=== PATIENT | female | born 1950 | race Caucasian/White ===

== ENCOUNTER 2023-04-25 14:52 | Outpatient (AMB) | payer MEDICARE, SELFPAY ==
--- NOTE | 2023-04-25 15:07 | MHC.PC.OV ---
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: No Allergies No Known Allergies Allergy (Verified 04/25/23 15:46) Medication List - Last Reconciled 04/25/23 by ZOE Bernal acetaminophen (Tylenol Extra Strength) 1,000 mg PO Q6H PRN aspirin 81 mg PO DAILY atorvastatin 10 mg PO DAILY cholecalciferol (vitamin D3) 25 mcg PO DAILY esomeprazole magnesium (Nexium) 40 mg PO DAILY fluticasone propionate 50 mcg/actuation (Flonase Allergy Relief) 1 spray intranasal DAILY lisinopril 20 mg PO DAILY magnesium gluconate (Mag-G) 54 mg PO DAILY mecobalamin (vitamin B12) 1,000 mcg PO DAILY melatonin 10 mg PO BEDTIME PRN meloxicam 15 mg PO DAILY swlsmqelgmds-merokglx-fygtjv 1 tab PO DAILY omega-3 fatty acids 1,250 mg PO DAILY sertraline 50 mg PO DAILY Tobacco use date assessed: 04/25/23 Fall risk assessment: 2 + Falls in past year Last assessed Fall Risk: 04/25/23 Dental Screening Dental Screen Date: 04/25/23 Did you have a dental visit in the last 12 months?: Yes Did you have a dental problem in the last 6 months where you did not have access to dental care?: No Was dental information given to patient?: Patient has dentist 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 Previous PCP in [place] Dr. Rose, last visit about 1 year ago. No medical records from previous PCP. 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 - followed by Orthopedic-reports injections 2 months ago with improvement in pain, left-sided sciatica for long time-reports taking Tylenol and ice packs with some improvement-interested in physical therapy - pain is worse with prolonged sitting, arthritis of low back-reports x-ray long time ago-will repeat x-ray due to back pain as well, hypertension, varicose vein of right leg-reports will be having procedure on right lower extremity veins 05/2023 in [place], GERD which is stable with Nexium-reports intermittent coughing when swallowing foods, reports bilateral ear blocked sensation for long time-reports eustachian tube problems, reports ongoing postnasal drip-did not use anything for this except normal saline spray with no improvement, chronic numbness in feet-and cramping in legs usually when at rest, and female bladder prolapse-reports plan was for surgery-this was on hold due to being sick with cancer. Also would like her skin on back to be checked by PCP, reports she lives by herself unable to check her back. No shortness of breath or chest pain. Patient reports that she does not have high cholesterol, she reports she was placed on atorvastatin for prevention. Patient is a and she lives by herself, retired. Reports 1 cocktail at night, reports she does not need help with alcohol cessation. [facility] Surgical History H/O neck surgery History of cholecystectomy Hx of tonsillectomy Family History (Updated 04/25/23 @ 16:05 by ZOE Bernal) Mother No problems noted. Father Alzheimer disease Hx of CABG Social History Housing: Apartment Patient Tobacco Use Status: Never used Tobacco Current occupational status: retired Cognitive needs: No Hearing needs: No Vision needs: No Questionnaire PHQ-9 Over the last 2 weeks, how often have you been bothered by any of the following problems? 1. Little interest or pleasure in doing things: not at all 2. Feeling down, depressed, or hopeless: not at all 3. Trouble falling or staying asleep, or sleeping too much: not at all 4. Feeling tired or having little energy: not at all 5. Poor appetite or overeating: not at all 6. Feeling bad about yourself - or that you are a failure or have let yourself or your family down: not at all 7. Trouble concentrating on things, such as reading the newspaper or watching television: not at all 8. Moving or speaking so slowly that other people could have noticed. Or the opposite - being so fidgety or restless that you have been moving around a lot more than usual: not at all 9. Thoughts that you would be better off or of hurting yourself in some way: not at all Total score: 0 Depression Screening Interpretation: Negative 39865 - PHQ-9 Billing: Yes Source: Developed by Drs. Shaheen Vasquez, Hollie Schroeder, Cristofer Logan and colleagues, with an educational mary from [employer]. Thrive Questionnaire Date Thrive assessed: 04/25/23 I am a: Patient What is your living situation today?: I have a steady place to live Within the past 12 months, did the food you bought not last and you didn't have the money to get more?: Never true Within the past 12 months, did you worry whether your food would run out before you got money to buy more?: Never true Do you have trouble paying for medicines?: No Do you have trouble getting transportation to medical appointments?: No Do you have trouble paying your heating and electricity bill?: No Do you have trouble taking care of your child, family member or friend?: No Do you have trouble with day-to-day activities such as bathing, preparing meals, shopping, managing finances, etc.?: No Are you currently unemployed and looking for a job?: No Are you interested in more education?: No Currently or been in a relationship where the following occur: no concerns reported AUDIT C Alcohol Use Questionnaire (AUDIT-C) 1. How often do you have a drink containing alcohol?: 4 or more times a week 2. How many drinks containing alcohol do you have on a typical day when you are drinking?: 1 or 2 3. How often do you have six or more drinks on one occasion?: Weekly Total Score: 7 Score Reviewed/Action Taken: Yes ZIYAD-7 AMB Questionnaire ZIYAD-7 Date ZIYAD - 7 assessed: 04/25/23 Feeling nervous, anxious, or on edge: 0 = Not at all Not being able to stop or control worryin = Not at all Worrying too much about different things: 0 = Not at all Trouble relaxin = Not at all Being so restless that it is hard to sit still: 0 = Not at all Becoming easily annoyed or irritable: 0 = Not at all Feeling afraid as if something awful might happen: 0 = Not at all Total ZIYAD-7 score (0-4 normal; 5-9 mild; 10-14 moderate; 15-21 severe): 0 Source: Developed by Drs. Shaheen Vasquez, Hollie Schroeder, Cristofer Logan and colleagues, with an educational mary from [employer]. ZIYAD-7 Assessment Billing ZIYAD-7 Assessment Tool: ZIYAD-7 Assessment 17524 Review of Systems Const Denies body aches, Denies chills, Denies fever(s) and Denies headache(s) Eyes Denies change in vision ENT Reports as per HPI, Denies dizziness, Denies otalgia, Denies headache(s), Denies nasal discharge, Reports post nasal drip, Denies sinus pain, Denies sinus pressure and Denies sore throat Card Denies chest pain, Denies edema, Denies lightheadedness and Denies dyspnea Resp Denies cough, Denies dyspnea and Denies wheezing GI Denies abdominal pain, Denies constipation, Denies diarrhea, Denies nausea and Denies vomiting Denies dysuria Musc Reports back pain, Denies myalgias, Reports arthralgias, Denies joint swelling, Reports numbness (feet) and Reports tingling (feet ) Skin/Breast Denies lesions and Denies rash Neuro Denies dizziness, Denies headache(s), Reports numbness (feet) and Reports tingling (feet ) Aller/Immun Denies wheezing Physical exam (Primary Care) Vital Signs: Last Vital Signs Pulse 67 04/25/23 15:20 BP 118/86 04/25/23 15:20 Pulse Ox 96 04/25/23 15:20 Oxygen Delivery Method Room Air 04/25/23 15:20 BMI result Body Mass Index 27.6 Tobacco/Smoking Status: Tobacco use Status Tobacco use date assessed 04/25/23 04/25/23 15:09 Patient Tobacco Use Status Never used Tobacco 04/25/23 15:09 PHQ-9: PHQ-9 Score PHQ-9: Total score 0 04/25/23 15:59 Depression Screening Interpretation: Negative Thrive Assessment: Date of Thrive Assessment Date Thrive assessed 04/25/23 04/25/23 15:10 Currently or been in a relationship where the following occur: no concerns reported Const General: cooperative and no acute distress Orientation/consciousness: patient oriented x3 HENMT Head: Yes normocephalic and Yes atraumatic Ears: TM's normal bilaterally Face and sinus: Yes sinuses nontender Mouth: oropharynx normal and moist mucous membranes Throat: Yes posterior oropharynx normal Eyes General: appearance normal, both eyes and all related structures Pupils: Equal, round and reactive pupils present EOM: EOMs intact bilaterally Neck Neck: Yes normal visual inspection, Yes full ROM and Yes no lymphadenopathy Thyroid: Thyroid normal Resp Effort & Inspection: normal respiratory effort and able to speak in complete sentences Auscultation: clear to auscultation bilaterally, no crackles, no rales, no rhonchi and no wheezes Cardio Rate: regular rate Rhythm: regular rhythm Heart sounds: S1 normal heart sound present, S2 normal heart sound present and no murmurs GI Palpation (GI): Soft to palpation, not firm, nontender, no guarding, not rigid and no hepatosplenomegaly Auscultation: normal bowel sounds General: No CVA tenderness Back/Spine/Pelvis Back: No CVA tenderness Thoracic/Lumbar Spine: thoraco-lumbar ROM normal, No paraspinal muscle tenderness, No thoracic spinal tenderness, No lumbar spinal tenderness and straight leg raise positive (Left) Skin Other: Mid back with intact skin tag, nontender Generalized back with multiple small flat brown areas, nontender, no discharge, no suspicious lesions Neuro General: patient oriented x3 Cranial nerves: Yes Equal, round and reactive pupils present Gait exam (Neuro): Normal gait present Extrem General: Yes full ROM and No edema Assessment and Plan Assessment & Plan (1) Female bladder prolapse: Code(s): N81.10 - Cystocele, unspecified Plan: Urogynecology referral for an evaluation and treatment Patient reports plan was for surgery, although this was on hold due to her being sick with cancer (2) Numbness in feet: Code(s): R20.0 - Anesthesia of skin Plan: Blood work ordered If blood work within normal range, will consider nerve study (3) Postnasal drip: Code(s): R09.82 - Postnasal drip Plan: ENT referral for an evaluation and treatment Will treat with Flonase nasal spray daily (4) Eustachian tube dysfunction: Code(s): H69.90 - Unspecified Eustachian tube disorder, unspecified ear Plan: ENT referral for an evaluation and treatment Will treat with Flonase nasal spray daily (5) GERD (gastroesophageal reflux disease): Code(s): K21.9 - Gastro-esophageal reflux disease without esophagitis Plan: Continue Nexium 40 mg daily Avoid GERD trigger foods Do not lay down 2-3 hours after evening meal Patient reports coughing fits when swallowing foods Will obtain upper GI study (6) Hypertension: Code(s): I10 - Essential (primary) hypertension Plan: Goal BP equal or less than 140/90 Continue lisinopril 20 mg daily Low-sodium diet (7) Arthritis of low back: Code(s): M47.819 - Spondylosis without myelopathy or radiculopathy, site unspecified Plan: Physical therapy referral Patient reports that she takes Tylenol 1000 mg 1 to 2 times a day p.r.n. Will repeat x-ray Patient would like to hold off on muscle relaxer at this time (8) Left sided sciatica: Code(s): M54.32 - Sciatica, left side Plan: Same as above Patient also has meloxicam 15 mg tablet which is given by her orthopedic for shoulder pains, she takes half tablet-reports this makes her dizzy intermittently-she will try [id number] naproxen p.r.n. instead (9) Anxiety: Code(s): F41.9 - Anxiety disorder, unspecified Plan: Stable with sertraline 50 mg daily (10) Encounter to establish care: Comment: PNA IZ after age 65 per pt. Td UTD per pt. Code(s): Z76.89 - Persons encountering health services in other specified circumstances Plan: Patient presents to establish care, blood work ordered (11) Insomnia: Code(s): G47.00 - Insomnia, unspecified Plan: Continue melatonin 10 mg at bedtime p.r.n. Plan Follow-up in 2 months for PE and labs Orders: Orders Vitamin D 25-OH Total Today I10 - Essential (primary) hypertension Vitamin B12 and Folate Today I10 - Essential (primary) hypertension TSH reflex Free T4 Today I10 - Essential (primary) hypertension Lipid Panel Today I10 - Essential (primary) hypertension Comprehensive [place]. Panel Fast Today I10 - Essential (primary) hypertension Complete Blood Count Auto Diff Today I10 - Essential (primary) hypertension Magnesium Today R20.0 - Anesthesia of skin XR lumbar spine 4V min Today M47.819 - Spondylosis without myelopathy or radiculopathy, site unspecified FL upper GI w Ba Swallow Today K21.9 - Gastro-esophageal reflux disease without esophagitis PT Evaluation and Treatment Today M47.819 - Spondylosis without myelopathy or radiculopathy, site unspecified, M54.32 - Sciatica, left side Referrals Urogynecology Referral N81.10 - Cystocele, unspecified Ear/Nose/Throat Referral H69.90 - Unspecified Eustachian tube disorder, unspecified ear, R09.82 - Postnasal drip Medications: New fluticasone propionate 50 mcg/actuation (Flonase Allergy Relief) administer into each nostril 1 spray intranasal DAILY 100 mL 0RF R09.82 - Postnasal drip Coding Level of Care Code New Pt Level 4 (55613) Diagnoses Female bladder prolapse N81.10 Numbness in feet R20.0 Postnasal drip R09.82 Eustachian tube dysfunction H69.90 GERD (gastroesophageal reflux disease) K21.9 Hypertension I10 Arthritis of low back M47.819 Left sided sciatica M54.32 Anxiety F41.9 Encounter to establish care Z76.89 Insomnia G47.00 Additional Codes ZIYAD-7 Assessment Billing - ZIYAD-7 Assessment Tool: ZIYAD-7 Assessment 08312 ([id number])
[2023-04-25 15:20] VITALS: BP 118/86; PULSE 67; O2SAT 96; BMI 27.6
== END 2023-04-25 16:23 | disposition home or self-care (01) ==
PROVIDERS: PCP Nurse Practitioner Family; Visit Provider Nurse Practitioner Family
DX: K21.9 Gastro-esophageal reflux disease without esophagitis (principal); I10 Essential (primary) hypertension; F41.9 Anxiety disorder, unspecified; N81.10 Cystocele, unspecified; R20.0 Anesthesia of skin; R09.82 Postnasal drip; H69.90 Unspecified Eustachian tube disorder, unspecified ear; M47.819 Spondylosis without myelopathy or radiculopathy, site unspecified; M54.32 Sciatica, left side; Z76.89 Persons encountering health services in other specified circumstances; G47.00 Insomnia, unspecified
CPT/HCPCS: 99204

== ENCOUNTER 2023-04-26 10:07 | Outpatient (REF) | payer MEDICARE, OTHER, SELFPAY ==
--- NOTE | ~2023-04-26 | XR_ITS ---
EXAMINATION: XR LUMBOSACRAL SPINE CLINICAL INFORMATION: Reason for Exam M47.819 - Spondylosis without myelopathy or radiculopathy, site unspecified COMPARISON: None TECHNIQUE: 5 views of the lumbar spine FINDINGS: 5 nonrib-bearing lumbar-type vertebral bodies. Vertebral body heights are maintained. Grade 1 anterolisthesis of L5 on S1. Mild levoconvex curvature of the lumbar spine. No pars defects. Sacroiliac joint spaces appear maintained. Moderate multilevel degenerative disc disease with loss of disc space height and facet arthropathy. Right upper quadrant cholecystectomy clips. XR/XR lumbar spine 4V min IMPRESSION: * Moderate spondylosis of the lumbar spine, as above detailed. * Spondylolisthesis, as above detailed with levoconvex curvature of the lumbar spine.
[2023-04-26 10:34] LABS: MANUAL DIFF FLAG NO
[2023-04-26 10:54] LABS: Basophils Percent Auto 0.4 % (0-2); Eosinophils Absolute Auto 0.2 X10*3/uL (0.0-0.4); Eosinophils Percent Auto 4.1 % (0-4); Hematocrit 39.1 % (37.0-47.0); Hemoglobin 12.9 g/dl (12.0-16.0); Imm Gran Abs Auto 0.02 X10*3/uL (0.00-0.03); Imm Gran Pct Auto 0.4 % (0.0-0.4); Lymphocytes Absolute Auto 1.5 X10*3/uL (1.2-4.9); Lymphocytes Percent Auto 30.5 % (20-40); Mean Platelet Volume 11.1 fL (9.4-12.3); Monocytes Absolute Auto 0.4 X10*3/uL (0.1-1.2); Monocytes Percent Auto 8.2 % (2-11); Neutrophils Absolute Auto 2.8 x10*3/uL (2.0-8.3); Neutrophils Percent Auto 56.4 % (45-73); Platelet Count 158 X10*3/uL (160-400); Red Blood Count 3.91 X10*6/uL (4.20-5.50); Red Cell Distribution Width 14.1 % (11.0-16.0); White Blood Count 4.9 X10*3/uL (4.8-10.8)
[2023-04-26 11:41] LABS: Alanine Aminotransferase 30 U/L (0-31); Albumin Level 4.1 g/dL (3.5-5.0); Alkaline Phosphatase 62 U/L (39-117); Anion Gap 10 (12-20); Aspartate Amino Transferase 23 U/L (5-31); Bilirubin Total 0.7 mg/dL (0.0-1.0); Blood Urea Nitrogen 24 mg/dL (9-16); Calcium 10.1 mg/dL (8.4-10.2); Carbon Dioxide 27 mmol/L (22-29); Chloride 107 mmol/L (96-108); Cholesterol 194 mg/dL; Estimated Glomerular Filt Rate > 60; Glucose Fasting 107 mg/dL (60-99); HDL Cholesterol 63 mg/dL; LDL Cholesterol Calculated 112 mg/dl; Magnesium 1.8 mg/dL (1.6-2.6); Potassium 4.4 mmol/L (3.3-5.1); Sodium 140 mmol/L (135-145); Total Protein 7.2 g/dL (6.5-8.0); Triglycerides 99 mg/dL
[2023-04-26 11:57] LABS: TSH reflex Free T4 1.09 uIU/mL (0.32-4.0); Vitamin D 25-OH Total 51.8 ng/mL (>30)
[2023-04-26 12:08] LABS: Folate 13.5 ng/mL (> or = 4.0); Vitamin B12 1061 pg/mL (200-900)
== END 2023-04-26 10:08 | disposition home or self-care (01) ==
LOC: HO.LAB 10:07
PROVIDERS: PCP Nurse Practitioner Family; Visit Provider Nurse Practitioner Family
DX: I10 Essential (primary) hypertension (principal); R20.0 Anesthesia of skin; M47.816 Spondylosis without myelopathy or radiculopathy, lumbar region; G47.00 Insomnia, unspecified
CPT/HCPCS: 36415; 72110; 80053; 80061; 82306; 82607; 82746; 83735; 84443; 85025

== ENCOUNTER 2023-05-15 10:06 | Outpatient (REF) | payer MEDICARE, OTHER, SELFPAY ==
[2023-05-15 10:53] LABS: Estimated Average Glucose 97 mg/dL
== END 2023-05-15 10:07 | disposition home or self-care (01) ==
LOC: HO.LAB 10:06
PROVIDERS: PCP Nurse Practitioner Family; Visit Provider Nurse Practitioner Family
DX: R73.01 Impaired fasting glucose (principal)
CPT/HCPCS: 36415; 83036

== ENCOUNTER 2023-06-27 10:16 | Outpatient (AMB) | payer MEDICARE, OTHER, SELFPAY ==
[2023-06-27 10:17] VITALS: BP 136/82; PULSE 55; O2SAT 99; BMI 27.7
--- NOTE | 2023-06-27 10:17 | MHC.PC.OV ---
Vital Signs 06/27/23 10:17 Height 5 ft 7 in Weight 177 lb 0.4 oz BMI 27.7 BP 136/82 Blood Pressure Location Lt brachial Position Sitting Pulse 55 Pulse Source Pulse Oximeter Temp Source Skin Pulse Oximetry (%) 99 Oxygen Delivery Method Room Air Intake Visit Reasons: Annual Exam Intake Note: Patient is here today for a physical. 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 Allergies No Known Allergies Allergy (Verified 06/27/23 10:26) Medication List - Last Reconciled 06/27/23 by ZOE Bernal acetaminophen (Tylenol Extra Strength) 1,000 mg PO Q6H PRN aspirin 81 mg PO DAILY atorvastatin 10 mg PO DAILY cholecalciferol (vitamin D3) 25 mcg PO DAILY esomeprazole magnesium (Nexium) 40 mg PO DAILY fluticasone propionate 50 mcg/actuation (Flonase Allergy Relief) 1 spray intranasal DAILY lisinopril 20 mg PO DAILY magnesium gluconate (Mag-G) 54 mg PO DAILY mecobalamin (vitamin B12) 1,000 mcg PO DAILY melatonin 10 mg PO BEDTIME PRN meloxicam 15 mg PO DAILY xincigldusdr-qptdemcp-htptuu 1 tab PO DAILY omega-3 fatty acids 1,250 mg PO DAILY sertraline 50 mg PO DAILY Tobacco use date assessed: 06/27/23 Fall risk assessment: No Falls in past year Last assessed Fall Risk: 06/27/23 Dental Screening Dental Screen Date: 06/27/23 Did you have a dental visit in the last 12 months?: Yes Did you have a dental problem in the last 6 months where you did not have access to dental care?: No Was dental information given to patient?: Patient has dentist HPI Annual Exam HPI Details Patient is a 72-year-old female who presents today for physical exam. 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 No shortness of breath or chest pain. Today we discussed patient's need for mammogram and bone density screening. Patient reports tetanus vaccine within 10 years. Pneumonia vaccine after age 65 per patient. Eye and dental exams up-to-date. Patient reports normal colonoscopy in 2020. Reports drinking alcohol only socially, does not need help with alcohol cessation. [facility] Medical History (Updated 06/27/23 @ 11:05 by ZOE Bernal) Encounter to establish care Surgical History (Updated 06/27/23 @ 11:02 by ZOE Bernal) History of colonoscopy Hx of tonsillectomy History of cholecystectomy H/O neck surgery Family History Mother No problems noted. Father Alzheimer disease Hx of CABG Social History Housing: Apartment Patient Tobacco Use Status: Never used Tobacco Current occupational status: retired Cognitive needs: No Hearing needs: No Vision needs: No Questionnaire PHQ-9 Over the last 2 weeks, how often have you been bothered by any of the following problems? 1. Little interest or pleasure in doing things: not at all 2. Feeling down, depressed, or hopeless: not at all 3. Trouble falling or staying asleep, or sleeping too much: not at all 4. Feeling tired or having little energy: not at all 5. Poor appetite or overeating: not at all 6. Feeling bad about yourself - or that you are a failure or have let yourself or your family down: not at all 7. Trouble concentrating on things, such as reading the newspaper or watching television: not at all 8. Moving or speaking so slowly that other people could have noticed. Or the opposite - being so fidgety or restless that you have been moving around a lot more than usual: not at all 9. Thoughts that you would be better off or of hurting yourself in some way: not at all Total score: 0 Depression Screening Interpretation: Negative Depression Screening Done: Yes 28472 - PHQ-9 Billing: Yes Source: Developed by Drs. Shaheen Vasquez, Hollie Schroeder, Cristofer Logan and colleagues, with an educational mary from [employer]. Thrive Questionnaire Date Thrive assessed: 04/25/23 AUDIT C Alcohol Use Questionnaire (AUDIT-C) 1. How often do you have a drink containing alcohol?: 4 or more times a week 2. How many drinks containing alcohol do you have on a typical day when you are drinking?: 1 or 2 3. How often do you have six or more drinks on one occasion?: Weekly Total Score: 7 Score Reviewed/Action Taken: Yes ZIYAD-7 AMB Questionnaire ZIYAD-7 Date ZIYAD - 7 assessed: 04/25/23 Feeling nervous, anxious, or on edge: 0 = Not at all Not being able to stop or control worryin = Not at all Worrying too much about different things: 0 = Not at all Trouble relaxin = Not at all Being so restless that it is hard to sit still: 0 = Not at all Becoming easily annoyed or irritable: 0 = Not at all Feeling afraid as if something awful might happen: 0 = Not at all Total ZIYAD-7 score (0-4 normal; 5-9 mild; 10-14 moderate; 15-21 severe): 0 Source: Developed by Drs. Shaheen Vasquez, Hollie Schroeder, Cristofer Logan and colleagues, with an educational mary from [employer]. ZIYAD-7 Assessment Billing ZIYAD-7 Assessment Tool: ZIYAD-7 Assessment 80465 Review of Systems Const Denies body aches, Denies chills, Denies fever(s) and Denies headache(s) Eyes Denies change in vision ENT Denies dizziness, Denies otalgia, Denies headache(s), Denies nasal discharge, Reports post nasal drip, Denies sinus pain, Denies sinus pressure and Denies sore throat Card Denies chest pain, Denies edema, Denies lightheadedness and Denies dyspnea Resp Denies cough, Denies dyspnea and Denies wheezing GI Denies abdominal pain, Denies constipation, Denies diarrhea, Denies nausea and Denies vomiting Denies dysuria Musc Reports back pain, Denies myalgias, Reports arthralgias, Denies joint swelling, Reports numbness (feet) and Reports tingling (feet ) Skin/Breast Denies lesions and Denies rash Neuro Denies dizziness, Denies headache(s), Reports numbness (feet) and Reports tingling (feet ) Aller/Immun Denies wheezing Physical exam (Primary Care) Vital Signs: Last Vital Signs Pulse 55 06/27/23 10:17 BP 136/82 06/27/23 10:17 Pulse Ox 99 06/27/23 10:17 Oxygen Delivery Method Room Air 06/27/23 10:17 BMI result Body Mass Index 27.7 Tobacco/Smoking Status: Tobacco use Status Tobacco use date assessed 06/27/23 06/27/23 10:24 Patient Tobacco Use Status Never used Tobacco 06/27/23 10:24 PHQ-9: PHQ-9 Score PHQ-9: Total score 0 06/27/23 10:24 Depression Screening Interpretation: Negative Thrive Assessment: Date of Thrive Assessment Date Thrive assessed 04/25/23 06/27/23 10:24 Const General: cooperative and no acute distress Orientation/consciousness: patient oriented x3 HENMT Head: Yes normocephalic and Yes atraumatic Ears: TM's normal bilaterally Face and sinus: Yes sinuses nontender Mouth: oropharynx normal and moist mucous membranes Throat: Yes posterior oropharynx normal Eyes General: appearance normal, both eyes and all related structures Pupils: Equal, round and reactive pupils present EOM: EOMs intact bilaterally Neck Neck: Yes normal visual inspection, Yes full ROM and Yes no lymphadenopathy Thyroid: Thyroid normal Resp Effort & Inspection: normal respiratory effort and able to speak in complete sentences Auscultation: clear to auscultation bilaterally, no crackles, no rales, no rhonchi and no wheezes Cardio Rate: regular rate Rhythm: regular rhythm Heart sounds: S1 normal heart sound present, S2 normal heart sound present and no murmurs GI Palpation (GI): Soft to palpation, not firm, Tenderness to palpation present (GI) in the RUQ; with no rebound tenderness, no guarding, not rigid and no hepatosplenomegaly Auscultation: normal bowel sounds General: No CVA tenderness Back/Spine/Pelvis Back: No CVA tenderness Thoracic/Lumbar Spine: thoraco-lumbar ROM normal, No paraspinal muscle tenderness, No thoracic spinal tenderness and No lumbar spinal tenderness Skin Rashes: no rashes Neuro General: patient oriented x3 Cranial nerves: Yes Equal, round and reactive pupils present Gait exam (Neuro): Normal gait present Extrem General: Yes full ROM and No edema Assessment and Plan Assessment & Plan (1) Postnasal drip: Code(s): R09.82 - Postnasal drip Plan: Will follow-up on ENT referral Continue Flonase nasal spray daily (2) GERD (gastroesophageal reflux disease): Code(s): K21.9 - Gastro-esophageal reflux disease without esophagitis Plan: Continue Nexium 40 mg daily Avoid GERD trigger foods Do not lay down 2-3 hours after evening meal Patient reports coughing fits when swallowing foods Will follow-up on upper GI study (3) Hypertension: Code(s): I10 - Essential (primary) hypertension Plan: Goal BP equal or less than 140/90 Continue lisinopril 20 mg daily Low-sodium diet (4) Arthritis of low back: Code(s): M47.819 - Spondylosis without myelopathy or radiculopathy, site unspecified Plan: Physical therapy referral - patient will call for an appointment - has referral Continue [id number] Tylenol p.r.n. and Aleve prn Patient interested in pain management referral (5) Left sided sciatica: Code(s): M54.32 - Sciatica, left side Plan: Physical therapy referral - patient will call for an appointment Continue [id number] Tylenol p.r.n. and Aleve prn Patient interested in pain management referral (6) Anxiety: Code(s): F41.9 - Anxiety disorder, unspecified Plan: Stable with sertraline 50 mg daily (7) Insomnia: Code(s): G47.00 - Insomnia, unspecified Plan: Continue melatonin 10 mg at bedtime p.r.n. (8) RUQ abdominal tenderness: Code(s): R10.811 - Right upper quadrant abdominal tenderness Plan: Physical exam with right upper quadrant tenderness, will obtain right upper quadrant ultrasound, history of cholecystectomy in the past (9) Post-menopausal: Code(s): Z78.0 - Asymptomatic menopausal state (10) Adult general medical exam: Comment: PNA IZ after age 65 per pt. Tetanus IZ within 10 years per pt. Code(s): Z00.00 - Encounter for general adult medical examination without abnormal findings (11) Screening for breast cancer: Code(s): Z12.39 - Encounter for other screening for malignant neoplasm of breast (12) Hyperlipidemia: Code(s): E78.5 - Hyperlipidemia, unspecified Plan: Continue atorvastatin 10 mg daily Low-cholesterol diet (13) Overweight (BMI 25.0-29.9): Code(s): E66.3 - Overweight Plan: Healthy food choices and exercise as tolerated Orders: Orders US abdomen limited Today R10.811 - Right upper quadrant abdominal tenderness Lipid Panel 4 Months I10 - Essential (primary) hypertension Comprehensive [place]. Panel Fast 4 Months I10 - Essential (primary) hypertension XR DEXA axial skeleton Today Z78.0 - Asymptomatic menopausal state MM tomosynthesis screening BI Today Z12.31 - Encounter for screening mammogram for malignant neoplasm of breast Complete Blood Count no Diff 4 Months I10 - Essential (primary) hypertension Referrals Pain Management Referral M47.819 - Spondylosis without myelopathy or radiculopathy, site unspecified, M54.32 - Sciatica, left side Coding Level of Care Code Est Pt Prev Care >65y(53192) Diagnoses Postnasal drip R09.82 GERD (gastroesophageal reflux disease) K21.9 Hypertension I10 Arthritis of low back M47.819 Left sided sciatica M54.32 Anxiety F41.9 Insomnia G47.00 RUQ abdominal tenderness R10.811 Post-menopausal Z78.0 Adult general medical exam Z00.00 Screening for breast cancer Z12.39 Hyperlipidemia E78.5 Overweight (BMI 25.0-29.9) E66.3 Additional Codes ZIYAD-7 Assessment Billing - ZIYAD-7 Assessment Tool: ZIYAD-7 Assessment [id number] ([id number])
== END 2023-06-27 10:52 | disposition home or self-care (01) ==
PROVIDERS: PCP Nurse Practitioner Family; Visit Provider Nurse Practitioner Family
DX: Z00.00 Encounter for general adult medical examination without abnormal findings (principal); R09.82 Postnasal drip; K21.9 Gastro-esophageal reflux disease without esophagitis; I10 Essential (primary) hypertension; M47.819 Spondylosis without myelopathy or radiculopathy, site unspecified; M54.32 Sciatica, left side; F41.9 Anxiety disorder, unspecified; G47.00 Insomnia, unspecified; R10.811 Right upper quadrant abdominal tenderness; Z78.0 Asymptomatic menopausal state; E78.5 Hyperlipidemia, unspecified
CPT/HCPCS: 99397

== ENCOUNTER 2023-07-05 09:51 | Outpatient (REF) | payer MEDICARE, OTHER, SELFPAY ==
--- NOTE | ~2023-07-05 | FL_ITS ---
EXAMINATION: XR FLUOROSCOPY UPPER GI WITH AIR CLINICAL INFORMATION: Dysphagia. History of cervical fusion 20 years ago. COMPARISON: None TECHNIQUE: Fluoroscopic air contrast upper GI examination was performed utilizing standard techniques with thin and thick barium and effervescent granules. Numerous spot images were obtained. FINDINGS: Patient is status post anterior cervical fusion of C4-C7. Plate and screw fixation is present C5-C7. No hardware complication. There are associated disc grafts with good disc bony fusion from C4-C7. Lateral cine images of the oropharynx and hypopharynx demonstrate normal swallow mechanism with normal epiglottic inversion and soft palate elevation. No tracheal penetration, glottic or subglottic aspiration identified. No nasopharyngeal reflux present. Hypopharyngeal structures appear normal without evidence of mass or diverticulum. There was no significant cricopharyngeal achalasia. No indentation on the esophageal inlet from the plate and screw construct. Dual and single contrast images of the esophagus demonstrate a patulous esophagus with normal contour, and mucosal pattern. No evidence of stricture, mass, or ulcerations identified. Primary peristaltic wave was weak, followed by numerous disordered tertiary nonpropulsive contractions are present with to and fro movement of the barium consistent with esophageal dysmotility. This barium eventually passed into the stomach. A small to moderate sized type III hiatal hernia is present. Mild gastroesophageal reflux seen in the distal esophagus, to the level of the nahomi. Dual contrast and single contrast images of the stomach demonstrated normal contour. Mild thickening of the gastric rugae noted, although the patient could not adequately retain the effervescent granule gas, and this is felt to most likely be artifactual. A mild gastritis is also possible. No discrete mass, or ulceration. Contrast freely passed into the gastric antrum and duodenal bulb without delay. Single and air-contrast images of the duodenal bulb demonstrate no abnormality. The duodenal sweep has a normal appearance, course, and mucosal fold appearance. The imaged proximal jejunum has a normal fold pattern and caliber. Cholecystectomy clips are noted. FLUOROSCOPY TIME: 3 minutes 57 seconds Number of Spot Images: 11 spot images taken fluoroscopically; 7 fluoroscopic image hold runs were obtained. DOSE AREA PRODUCT: 3779 uGy-m2 (microgray-meter squared) FL/FL upper GI w air w Ba Swallow IMPRESSION: 1) Small to moderate-sized type III hiatus hernia (paraesophageal). 2) Moderate gastroesophageal reflux. 3) Patulous esophagus, with diffuse dysmotility, and poor overall propulsive peristalsis. 4. Prominent gastric rugae, probably artifactual due to patient inability to retain gas. A mild gastritis is not excluded. The stomach, duodenal bulb, sweep, and proximal jejunum are otherwise normal. 5. Surgical fusion C4-C7 without complication or indentation upon the esophageal inlet. This procedure was performed by Jong Jose PA-C, and supervised by Dr. Dillon
== END 2023-07-05 09:52 | disposition home or self-care (01) ==
LOC: HO.XRAY 09:51
PROVIDERS: PCP Nurse Practitioner Family; Visit Provider Nurse Practitioner Family
DX: K21.9 Gastro-esophageal reflux disease without esophagitis (principal)
CPT/HCPCS: 74246

== ENCOUNTER → 2023-07-05 09:51 | Outpatient (BNV) | payer MEDICARE, OTHER, SELFPAY | PROVIDERS: PCP Nurse Practitioner Family; Visit Provider Radiology Diagnostic Radiology | DX: K44.9 Diaphragmatic hernia without obstruction or gangrene (principal); K21.9 Gastro-esophageal reflux disease without esophagitis; M43.22 Fusion of spine, cervical region | CPT/HCPCS: 74246 ==

== ENCOUNTER 2023-08-01 07:39 | Outpatient (REF) | payer MEDICARE, OTHER, SELFPAY ==
--- NOTE | ~2023-08-01 | US_ITS ---
EXAMINATION: US ABDOMEN LIMITED CLINICAL INFORMATION: Right upper quadrant abdominal tenderness. COMPARISON: None available. TECHNIQUE: Real-time imaging of the right upper quadrant abdominal viscera. FINDINGS: PANCREAS: Partially visualized pancreas is unremarkable but tail is obscured by bowel gas. LIVER: The liver is normal in size. The liver contour is normal. There is increased echogenicity of liver due to hepatic steatosis No focal hepatic lesion. There is no intrahepatic biliary duct dilatation seen. GALLBLADDER: Surgically absent. COMMON BILE DUCT: Normal in caliber measuring 0.3 cm in diameter. RIGHT KIDNEY: Normal. No hydronephrosis. No renal calculi or focal parenchymal lesions. The kidney measures 11.9 cm in maximum dimension. FREE FLUID: None. US/US abdomen limited IMPRESSION: Status post cholecystectomy. Hepatic steatosis.
--- NOTE | ~2023-08-01 | MM_ITS ---
EXAMINATION: MM SCREENING DIGITAL BREAST TOMOSYNTHESIS, BILATERAL CLINICAL INFORMATION: Screening. Asymptomatic. COMPARISON: Mammography: This study is compared with prior exams dating back to 2015. TECHNIQUE: Digital breast tomosynthesis is performed in both the craniocaudal and mediolateral oblique views along with computer-aided detection (CAD). Synthesized 2D images are generated from the tomosynthesis. FINDINGS: There are scattered areas of fibroglandular density (ACR BI-RADS breast composition Category b). There are no significant masses, abnormal calcifications, or other abnormalities. MM/MM tomosynthesis screening BI IMPRESSION: No mammographic evidence of malignancy. ASSESSMENT: BI-RADS BI-RADS 1 - Negative RECOMMENDATION: Routine annual mammography screening. 1 year F/U This examination should not preclude the clinical evaluation of a suspicious palpable abnormality. This patient's information was entered into a reminder system with a target due date for their next mammogram.
--- NOTE | ~2023-08-01 | MM_ITS ---
EXAMINATION: BONE DENSITOMETRY CLINICAL INDICATION: Asymptomatic menopausal state. COMPARISON: This is the patient's baseline examination. TECHNIQUE: Using a [employer] DXA System (software version: 13.1) manufactured by [employer], dual-energy x-ray absorptiometry was performed of the lumbar spine and left hip. The images are of good technical quality. Summary results are attached. FINDINGS: AP SPINE L1-L4: BMD 1.340 g/cm2, Z-score 2.7, T-score 1.3, normal. LEFT FEMUR, NECK: BMD 0.991 g/cm2, Z-score 1.2, T-score -0.3, normal. LEFT FEMUR, TOTAL: BMD 0.956 g/cm2, Z-score 0.9, T-score -0.4, normal. IDENTIFIED RISK FACTORS: Menopause. Hysterectomy. Bilateral oophorectomy. HISTORY OF FRACTURE: None listed. MEDICATIONS: Calcium supplement and/or multivitamin. Vitamin D. MM/XR DEXA axial skeleton IMPRESSION: 1. DIAGNOSIS: Normal bone density based on the lowest T-score value of -0.4 in the total femur applying World Health Organization criteria. 2. 10-YEAR FRACTURE RISK PREDICTION, FRAX: According to the guidelines, FRAX calculation should only be performed on patients in the osteopenia bone density category.?Therefore, FRAX was not performed on this patient.? 3. Treatment Recommendations: NOF guidelines recommend consideration for treatment in postmenopausal women and men age 50 and older presenting with the following: -A hip or vertebral (clinical or morphometric) fracture. -T-score less than or equal to -2.5 at the femoral neck or spine after appropriate evaluation to exclude secondary causes. -Low bone mass at the hip or spine and a 10-year fracture probability by FRAX of greater than or equal to 3% for hip fracture or greater than or equal to 20% for major osteoporotic fracture based on the [place] adapted WHO algorithm. 4. Other Recommendations: All treatment decisions require clinical judgment and consideration of individual patient factors, including patient preferences, comorbidities, previous drug use, risk factors not captured in the FRAX model (e.g. frailty, falls, vitamin D deficiency, increased bone turnover, interval significant decline in bone density) and possible under or overestimation of fracture risk by FRAX. FUTURE SCAN RECOMMENDATION: People with diagnosed cases of osteoporosis or at high risk for fracture should have regular bone mineral density tests. For patients eligible for Medicare, routine testing is allowed once every 2 years. The testing frequency can be increased to one year for patients who have rapidly progressing disease, those who are receiving or discontinuing medical therapy to restore bone mass, or have additional risk factors.
== END 2023-08-01 07:40 | disposition home or self-care (01) ==
LOC: HO.US 07:39
PROVIDERS: PCP Nurse Practitioner Family; Visit Provider Nurse Practitioner Family
DX: Z12.31 Encounter for screening mammogram for malignant neoplasm of breast (principal); Z13.820 Encounter for screening for osteoporosis; Z78.0 Asymptomatic menopausal state; R10.811 Right upper quadrant abdominal tenderness
CPT/HCPCS: 76705; 77063; 77067; 77080

== ENCOUNTER → 2023-08-01 09:30 | Outpatient (BNV) | payer MEDICARE, OTHER, SELFPAY | PROVIDERS: PCP Nurse Practitioner Family; Visit Provider Radiology Diagnostic Radiology | DX: Z12.31 Encounter for screening mammogram for malignant neoplasm of breast (principal) | CPT/HCPCS: 77063; 77067 ==

== ENCOUNTER 2023-08-23 09:27 | Outpatient (AMB) | payer MEDICARE, OTHER, SELFPAY ==
--- NOTE | 2023-08-23 09:31 | MHC.OFFVIS ---
Intake Vital Signs 08/23/23 09:32 Height 5 ft 7 in Weight 177 lb 4.026 oz BMI 27.8 BP 139/80 Blood Pressure Location Lt brachial Position Sitting Pulse 52 Intake Visit Reasons: Gastroesophageal reflux disease (GERD) Intake Note: Patient presents to in office visit today as a new patient for GERD. CC: Patient c/o GERD for a few years and she states she has been on Nexium for quite a long time . She states she has occasional abdominal pain, and coughing, itching from throat, and sometimes chocking with solid foods. She had a barium swallow done a few weeks ago in the hospital that showed a hiatal hernia per PT. Accompanied by: Self / Same As Patient Allergies No Known Allergies Allergy (Verified 08/23/23 09:36) HPI Gastroesophageal reflux disease (GERD) HPI Details 73-year-old female here for initial evaluation of GERD. She is referred by Emmie Manjarrez of [facility] [place] primary care. PMX Hypertension Overweight High cholesterol Fibromyalgia syndrome Elevated fasting glucose Insomnia GERD Varicose veins Degenerative disc disease of the lumbar spine Shoulder arthritis Anxiety Cystocele * SURGICAL HISTORY Colonoscopy -[place] Tonsillectomy Cholecystectomy Neck surgery * ALLERGIES: NKDA * Robo[facility] LABS: Laboratory Tests 04/26/23 10:32 WBC 4.9 Hgb 12.9 Hct 39.1 MCV 100.0 H MCH 33.0 Plt Count 158 L Estimated GFR > 60 Total Bilirubin 0.7 AST 23 ALT 30 Alkaline Phosphata se 62 TSH 1.09 US OF ABD 08/02/23 FINDINGS: PANCREAS: Partially visualized pancreas is unremarkable but tail is obscured by bowel gas. LIVER: The liver is normal in size. The liver contour is normal. There is increased echogenicity of liver due to hepatic steatosis No focal hepatic lesion. There is no intrahepatic biliary duct dilatation seen. GALLBLADDER: Surgically absent. COMMON BILE DUCT: Normal in caliber measuring 0.3 cm in diameter. RIGHT KIDNEY: Normal. No hydronephrosis. No renal calculi or focal parenchymal lesions. The kidney measures 11.9 cm in maximum dimension. FREE FLUID: None. US/US abdomen limited IMPRESSION: Status post cholecystectomy. Hepatic steatosis. BARIUM SWALLOW 07/05/23 FINDINGS: Patient is status post anterior cervical fusion of C4-C7. Plate and screw fixation is present C5-C7. No hardware complication. There are associated disc grafts with good disc bony fusion from C4-C7. Lateral cine images of the oropharynx and hypopharynx demonstrate normal swallow mechanism with normal epiglottic inversion and soft palate elevation. No tracheal penetration, glottic or subglottic aspiration identified. No nasopharyngeal reflux present. Hypopharyngeal structures appear normal without evidence of mass or diverticulum. There was no significant cricopharyngeal achalasia. No indentation on the esophageal inlet from the plate and screw construct. Dual and single contrast images of the esophagus demonstrate a patulous esophagus with normal contour, and mucosal pattern. No evidence of stricture, mass, or ulcerations identified. Primary peristaltic wave was weak, followed by numerous disordered tertiary nonpropulsive contractions are present with to and fro movement of the barium consistent with esophageal dysmotility. This barium eventually passed into the stomach. A small to moderate sized type III hiatal hernia is present. Mild gastroesophageal reflux seen in the distal esophagus, to the level of the nahomi. Dual contrast and single contrast images of the stomach demonstrated normal contour. Mild thickening of the gastric rugae noted, although the patient could not adequately retain the effervescent granule gas, and this is felt to most likely be artifactual. A mild gastritis is also possible. No discrete mass, or ulceration. Contrast freely passed into the gastric antrum and duodenal bulb without delay. Single and air-contrast images of the duodenal bulb demonstrate no abnormality. The duodenal sweep has a normal appearance, course, and mucosal fold appearance. The imaged proximal jejunum has a normal fold pattern and caliber. Cholecystectomy clips are noted. FLUOROSCOPY TIME: 3 minutes 57 seconds Number of Spot Images: 11 spot images taken fluoroscopically; 7 fluoroscopic image hold runs were obtained. DOSE AREA PRODUCT: 3779 uGy-m2 (microgray-meter squared) FL/FL upper GI w air w Ba Swallow IMPRESSION: 1) Small to moderate-sized type III hiatus hernia (paraesophageal). 2) Moderate gastroesophageal reflux. 3) Patulous esophagus, with diffuse dysmotility, and poor overall propulsive peristalsis. 4. Prominent gastric rugae, probably artifactual due to patient inability to retain gas. A mild gastritis is not excluded. The stomach, duodenal bulb, sweep, and proximal jejunum are otherwise normal. 5. Surgical fusion C4-C7 without complication or indentation upon the esophageal inlet. TODAY'S VISIT She has had reflux for years. When she saw her PCP she was told she had a HH and she is having a lot of coughing and she has a lot of PNDS and has to clear her throat. She is also complaining of copious postnasal drip. She says that her current PPI which is Nexium controlled her GERD well. She was just very worried about the hiatal hernia. I explained to her that hiatal hernias are not readily repairable as it is a very big surgery and we usually only do it if medical management fails. It is possible that she is having nocturnal acid brash from laying down at night and I did breastfeeding peer counselor her to put blocks under the head of her bed to see if this improves her voice quality. She tells me she has had several upper endoscopies and to date they have all been normal. I do offer that we could do an upper endoscopy if she wants to check and see if her reflux is doing any damage but she prefers not to do this at this time. I also tell her that a referral to an pattern maker would be appropriate to rule out chronic sinusitis or other causes that could be affecting her vocal cords. She requests a referral to [address] [facility] [address] that is [address] she [place]. I tell her that she is welcome to return to my service at any time but this time there is really nothing that GI has to offer. Needs ENT referral for further investigation. [facility] Medical History (Updated 08/23/23 @ 10:00 by IAN Cheng) Encounter to establish care Surgical History (Updated 08/23/23 @ 09:36 by BRENDA Wood) History of esophagogastroduodenoscopy (EGD) History of colonoscopy Hx of tonsillectomy History of cholecystectomy H/O neck surgery Family History Mother No problems noted. Father Alzheimer disease Hx of CABG Social History (Updated 08/23/23 @ 09:36 by Vilmarys Elton Jj, CCMA) Housing: Apartment Alcohol intake: current Alcohol intake frequency: holidays/special occasions only Patient Tobacco Use Status: Never used Tobacco Current occupational status: retired Cognitive needs: No Hearing needs: No Vision needs: No Review of Systems Const Denies fatigue, Denies fever(s), Denies night sweats, Denies poor appetite and Denies weight loss ENT Reports Normal hearing present, Denies dental pain, Denies dysphagia, Denies hearing loss, Reports hoarseness, Denies mouth pain, Denies odynophagia, Reports post nasal drip, Denies throat swelling, Denies tongue swelling and Reports other (Dentition adequate) Card Reports no additional complaints Resp Reports cough GI Denies abdominal pain, Denies melena, Denies bloating, Denies hematochezia, Denies constipation, Denies GI cramping, Denies dysphagia, Denies excessive flatus, Denies early satiety, Denies heartburn, Denies diarrhea, Denies nausea, Denies odynophagia, Denies vomiting and Denies hematemesis Skin/Breast Denies pruritus, Denies lesions, Denies rash and Denies jaundice Neuro Reports Normal hearing present and Denies Abnormal speech present Endo Denies fatigue Aller/Immun Denies throat swelling and Denies tongue swelling Physical Exam Vital Signs: Last Vital Signs Pulse 52 08/23/23 09:32 BP 139/80 08/23/23 09:32 BMI result Body Mass Index 27.8 Const General: cooperative, no acute distress, well developed and well groomed Nutritional Appearance: average body habitus and well nourished Orientation/consciousness: oriented to person, oriented to place and oriented to time Limitations: No language barrier HEENT Head: Yes normocephalic and Yes atraumatic Eyes General: appearance normal, both eyes and all related structures Pupils: Equal, round and reactive pupils present Neck Neck: Yes normal visual inspection and Yes no lymphadenopathy Thyroid: Thyroid normal Resp Effort & Inspection: normal respiratory effort and able to speak in complete sentences Auscultation: clear to auscultation bilaterally Cardio Rate: regular rate Rhythm: regular rhythm Heart sounds: Normal, physiologic split S2 sound present Peripheral pulses: radial pulses present and posterior tibial pulses present GI Inspection: No distended and No Abdominal panniculus present Palpation (GI): Soft to palpation, nontender, no guarding, not rigid and No hepatosplenomegaly present Percussion: Yes normal to percussion Auscultation: normal bowel sounds Rectal Exam - Female: deferred Skin General skin exam: no rashes or lesions noted, turgor normal, skin not dry, no jaundice, No spider nevi and no striae Rashes: no rashes Nails: normal Neuro General: oriented to person, oriented to place and oriented to time Cranial nerves: Yes Equal, round and reactive pupils present and Yes Normal hearing present Speech: No Abnormal speech present Extrem General: Yes normal to inspection, No clubbing, No cyanosis and No edema Psych Appearance: grossly normal and well kempt Mental Status: mental status grossly normal Speech and movement: Normal speech and movement present Affect: normal affect Attitude: cooperative Thought process: Normal thought process present and not confabulating Thought content: Normal thought content present Insight: Good insight present (Psych) Judgement: Good judgement present (Psych) Results Reviewed Results Reviewed: Laboratory Tests 04/26/23 10:32 WBC 4.9 Hgb 12.9 Hct 39.1 MCV 100.0 H MCH 33.0 Plt Count 158 L Estimated GFR > 60 Total Bilirubin 0.7 AST 23 ALT 30 Alkaline Phosphatase 62 TSH 1.09 US OF ABD 08/02/23 FINDINGS: PANCREAS: Partially visualized pancreas is unremarkable but tail is obscured by bowel gas. LIVER: The liver is normal in size. The liver contour is normal. There is increased echogenicity of liver due to hepatic steatosis No focal hepatic lesion. There is no intrahepatic biliary duct dilatation seen. GALLBLADDER: Surgically absent. COMMON BILE DUCT: Normal in caliber measuring 0.3 cm in diameter. RIGHT KIDNEY: Normal. No hydronephrosis. No renal calculi or focal parenchymal lesions. The kidney measures 11.9 cm in maximum dimension. FREE FLUID: None. US/US abdomen limited IMPRESSION: Status post cholecystectomy. Hepatic steatosis. BARIUM SWALLOW 07/05/23 FINDINGS: Patient is status post anterior cervical fusion of C4-C7. Plate and screw fixation is present C5-C7. No hardware complication. There are associated disc grafts with good disc bony fusion from C4-C7. Lateral cine images of the oropharynx and hypopharynx demonstrate normal swallow mechanism with normal epiglottic inversion and soft palate elevation. No tracheal penetration, glottic or subglottic aspiration identified. No nasopharyngeal reflux present. Hypopharyngeal structures appear normal without evidence of mass or diverticulum. There was no significant cricopharyngeal achalasia. No indentation on the esophageal inlet from the plate and screw construct. Dual and single contrast images of the esophagus demonstrate a patulous esophagus with normal contour, and mucosal pattern. No evidence of stricture, mass, or ulcerations identified. Primary peristaltic wave was weak, followed by numerous disordered tertiary nonpropulsive contractions are present with to and fro movement of the barium consistent with esophageal dysmotility. This barium eventually passed into the stomach. A small to moderate sized type III hiatal hernia is present. Mild gastroesophageal reflux seen in the distal esophagus, to the level of the nahomi. Dual contrast and single contrast images of the stomach demonstrated normal contour. Mild thickening of the gastric rugae noted, although the patient could not adequately retain the effervescent granule gas, and this is felt to most likely be artifactual. A mild gastritis is also possible. No discrete mass, or ulceration. Contrast freely passed into the gastric antrum and duodenal bulb without delay. Single and air-contrast images of the duodenal bulb demonstrate no abnormality. The duodenal sweep has a normal appearance, course, and mucosal fold appearance. The imaged proximal jejunum has a normal fold pattern and caliber. Cholecystectomy clips are noted. FLUOROSCOPY TIME: 3 minutes 57 seconds Number of Spot Images: 11 spot images taken fluoroscopically; 7 fluoroscopic image hold runs were obtained. DOSE AREA PRODUCT: 3779 uGy-m2 (microgray-meter squared) FL/FL upper GI w air w Ba Swallow IMPRESSION: 1) Small to moderate-sized type III hiatus hernia (paraesophageal). 2) Moderate gastroesophageal reflux. 3) Patulous esophagus, with diffuse dysmotility, and poor overall propulsive peristalsis. 4. Prominent gastric rugae, probably artifactual due to patient inability to retain gas. A mild gastritis is not excluded. The stomach, duodenal bulb, sweep, and proximal jejunum are otherwise normal. 5. Surgical fusion C4-C7 without complication or indentation upon the esophageal inlet. Assessment & Plan Assessment & Plan (1) GERD (gastroesophageal reflux disease): Code(s): K21.9 - Gastro-esophageal reflux disease without esophagitis (2) Hoarse voice quality: Code(s): R49.0 - Dysphonia Plan She has had reflux for years. When she saw her PCP she was told she had a HH and she is having a lot of coughing and she has a lot of PNDS and has to clear her throat. She is also complaining of copious postnasal drip. She says that her current PPI which is Nexium controlled her GERD well. She was just very worried about the hiatal hernia. I explained to her that hiatal hernias are not readily repairable as it is a very big surgery and we usually only do it if medical management fails. It is possible that she is having nocturnal acid brash from laying down at night and I did breastfeeding peer counselor her to put blocks under the head of her bed to see if this improves her voice quality. She tells me she has had several upper endoscopies and to date they have all been normal. I do offer that we could do an upper endoscopy if she wants to check and see if her reflux is doing any damage but she prefers not to do this at this time. I also tell her that a referral to an pattern maker would be appropriate to rule out chronic sinusitis or other causes that could be affecting her vocal cords. She requests a referral to [address] [facility] [address] since that is where she lives. I tell her that she is welcome to return to my service at any time but this time there is really nothing that GI has to offer. Needs ENT referral for further investigation. ROV PRN Orders: Referrals Ear/Nose/Throat Referral R49.0 - Dysphonia Coding Level of Care Code New Pt Level 3 (47585) Diagnoses GERD (gastroesophageal reflux disease) K21.9 Hoarse voice quality R49.0
[2023-08-23 09:32] VITALS: BP 139/80; PULSE 52; BMI 27.8
== END 2023-08-23 09:54 | disposition home or self-care (01) ==
PROVIDERS: PCP Nurse Practitioner Family; Visit Provider Nurse Practitioner
DX: K21.9 Gastro-esophageal reflux disease without esophagitis (principal); R49.0 Dysphonia
CPT/HCPCS: 99203

== ENCOUNTER → 2023-08-23 09:27 | Outpatient (BNVA) | payer MEDICARE, OTHER, SELFPAY | PROVIDERS: PCP Nurse Practitioner Family; Visit Provider Nurse Practitioner | DX: K21.9 Gastro-esophageal reflux disease without esophagitis (principal); R49.0 Dysphonia | CPT/HCPCS: 99202 ==

== ENCOUNTER 2023-10-04 15:41 | Outpatient (AMB) | payer MEDICARE, OTHER, SELFPAY ==
--- NOTE | 2023-10-04 15:47 | A.OFFPC_ITS ---
Vital Signs 10/04/23 15:49 Height 5 ft 7 in Weight 176 lb 6 oz BMI 27.6 BP 120/70 Blood Pressure Location Lt brachial Position Sitting Pulse 67 Pulse Source Pulse Oximeter Pulse Oximetry (%) 97 Oxygen Delivery Method Room Air Intake Visit Reasons: Numbness and pain in both legs Intake Note: Patient is here today for numbness and pain in both legs. Requesting for referral for Neurologist and ENT for ear tubes are blocked. Electronics Processor Required: No Organ Tuner: Not Required per policy Accompanied by: Self / Same As Patient Allergies No Known Allergies Allergy (Verified 10/14/23 09:35) Medication List - Last Reconciled 10/14/23 by Skyler Santos MD acetaminophen (Tylenol Extra Strength) 1,000 mg PO Q6H PRN aspirin 81 mg PO DAILY atorvastatin 10 mg PO DAILY cholecalciferol (vitamin D3) 25 mcg PO DAILY esomeprazole magnesium (Nexium) 40 mg PO DAILY fluticasone propionate 50 mcg/actuation (Flonase Allergy Relief) 1 spray intranasal DAILY lisinopril 20 mg PO DAILY magnesium gluconate (Mag-G) 54 mg PO DAILY mecobalamin (vitamin B12) 1,000 mcg PO DAILY [id number] 1 tab PO DAILY omega-3 fatty acids 1,250 mg PO DAILY sertraline 50 mg PO DAILY Tobacco use date assessed: 10/04/23 Fall risk assessment: No Falls in past year Last assessed Fall Risk: 10/04/23 Dental Screening Dental Screen Date: 10/04/23 Did you have a dental visit in the last 12 months?: Yes Did you have a dental problem in the last 6 months where you did not have access to dental care?: No Was dental information given to patient?: Patient has dentist HPI Numbness and pain in both legs HPI Details 73-year-old female presents to the offic e to discuss her medical conditions. I will be assuming her care as her primary provider has left the practice. Patient is complaining of tingling and numbness in her upper and lower extremity. These are associated with cramps and throbbing sensation in the leg. She has difficulty in the morning ambulating. Pain is more severe around the ankle. She has demyelinating disease history in the family. Able to function and do all activities of daily living. [facility] Medical History (Updated 10/14/23 @ 09:42 by Skyler Santos MD) Overweight (BMI 25.0-29.9) Hyperlipidemia Fibromyalgia Hypertension Surgical History History of esophagogastroduodenoscopy (EGD) History of colonoscopy Hx of tonsillectomy History of cholecystectomy H/O neck surgery Family History Mother No problems noted. Father Alzheimer disease Hx of CABG Other Mental health disorder Social History Housing: Apartment Alcohol intake: current Alcohol intake frequency: holidays/special occasions only Patient Tobacco Use Status: Never used Tobacco e-Cigarette/Vaping Use: Never Used Second Hand Smoke Exposure: No service: No Current occupational status: retired Cognitive needs: No Hearing needs: No Vision needs: No Questionnaire PHQ-9 Over the last 2 weeks, how often have you been bothered by any of the following problems? 1. Little interest or pleasure in doing things: not at all 2. Feeling down, depressed, or hopeless: not at all 3. Trouble falling or staying asleep, or sleeping too much: not at all 4. Feeling tired or having little energy: not at all 5. Poor appetite or overeating: not at all 6. Feeling bad about yourself - or that you are a failure or have let yourself or your family down: not at all 7. Trouble concentrating on things, such as reading the newspaper or watching television: not at all 8. Moving or speaking so slowly that other people could have noticed. Or the opposite - being so fidgety or restless that you have been moving around a lot more than usual: not at all 9. Thoughts that you would be better off or of hurting yourself in some way: not at all Total score: 0 Depression Screening Interpretation: Negative Depression Screening Done: Yes Source: Developed by Drs. Shaheen Vasquez, Hollie Schroeder, Cristofer Logan and colleagues, with an educational mary from [employer]. Thrive Questionnaire Date Thrive assessed: 10/04/23 I am a: Patient What is your living situation today?: I have a steady place to live Within the past 12 months, did the food you bought not last and you didn't have the money to get more?: Never true Within the past 12 months, did you worry whether your food would run out before you got money to buy more?: Never true Do you have trouble paying for medicines?: No Do you have trouble getting transportation to medical appointments?: No Do you have trouble paying your heating and electricity bill?: No Do you have trouble taking care of your child, family member or friend?: No Do you have trouble with day-to-day activities such as bathing, preparing meals, shopping, managing finances, etc.?: No Are you currently unemployed and looking for a job?: No Are you interested in more education?: No Currently or been in a relationship where the following occur: no concerns reported THRIVE Score: 0 AUDIT C Alcohol Use Questionnaire (AUDIT-C) 1. How often do you have a drink containing alcohol?: Never Total Score: 0 ZIYAD-7 AMB Questionnaire ZIYAD-7 Date ZIYAD - 7 assessed: 10/04/23 Feeling nervous, anxious, or on edge: 0 = Not at all Not being able to stop or control worryin = Not at all Worrying too much about different things: 0 = Not at all Trouble relaxin = Not at all Being so restless that it is hard to sit still: 0 = Not at all Becoming easily annoyed or irritable: 0 = Not at all Feeling afraid as if something awful might happen: 0 = Not at all Total ZIYAD-7 score (0-4 normal; 5-9 mild; 10-14 moderate; 15-21 severe): 0 Source: Developed by Drs. Shaheen Vasquez, Hollie Schroeder, Cristofer Logan and colleagues, with an educational mary from [employer]. Physical exam (Primary Care) Vital Signs: Last Vital Signs Pulse 67 10/04/23 15:49 BP 120/70 10/04/23 15:49 Pulse Ox 97 10/04/23 15:49 Oxygen Delivery Method Room Air 10/04/23 15:49 Care Plan Goal for BP management: Blood pressure is stable. Continue current medications. BMI result Body Mass Index 27.6 Tobacco/Smoking Status: Tobacco use Status Tobacco use date assessed 10/04/23 10/04/23 15:55 Patient Tobacco Use Status Never used Tobacco 10/04/23 15:55 e-Cigarette/Vaping Use Never Used 10/04/23 15:55 PHQ-9: PHQ-9 Score PHQ-9: Total score 0 10/04/23 15:55 Depression Screening Interpretation: Negative Thrive Assessment: Date of Thrive Assessment Date Thrive assessed 10/04/23 10/04/23 15:55 Currently or been in a relationship where the following occur: no concerns reported Const General: cooperative and healthy appearing Nutritional Appearance: well nourished Orientation/consciousness: patient oriented x3 Limitations: no limitations HENMT Head: Yes normal to inspection Eyes General: appearance normal, both eyes and all related structures Neck Neck: Yes normal visual inspection Chest Chest palpation & inspection: normal palpation of entire chest wall Resp Effort & Inspection: normal respiratory effort Neuro Other: Exaggerated knee and ankle reflexes. General: patient oriented x3 Assessment and Plan Assessment & Plan (1) Paresthesia: Code(s): R20.2 - Paresthesia of skin Plan: This note is being dictated after the results of the blood work is available. MCV which was elevated prior is now returning to normal size. B12 levels were normal in the past. TSH is normal. Patient denies drinking alcohol in large quantities. A neurology consult will be obtained after getting an MRI of the brain. Coding Level of Care Code Est Pt Level 4 (22577) Diagnoses Paresthesia R20.2
[2023-10-04 15:49] VITALS: BP 120/70; PULSE 67; O2SAT 97; BMI 27.6
== END 2023-10-04 17:43 | disposition home or self-care (01) ==
PROVIDERS: PCP Nurse Practitioner Family; Visit Provider Internal Medicine
DX: R20.2 Paresthesia of skin (principal)
CPT/HCPCS: 99214

== ENCOUNTER 2023-10-05 11:05 | Outpatient (REF) | payer MEDICARE, OTHER, SELFPAY ==
[2023-10-05 12:12] LABS: Hemoglobin 14.1 g/dl (12.0-16.0); Mean Corpuscular HGB Conc 33.6 g/dl (31.0-35.0); Mean Corpuscular Hemoglobin 32.9 pg (27.0-33.0); Mean Corpuscular Volume 98.1 fL (80.0-98.0); Mean Platelet Volume 11.4 fL (9.4-12.3); Platelet Count 169 X10*3/uL (160-400); Red Blood Count 4.28 X10*6/uL (4.20-5.50); Red Cell Distribution Width 13.2 % (11.0-16.0); White Blood Count 6.1 X10*3/uL (4.8-10.8)
[2023-10-05 12:36] LABS: Alanine Aminotransferase 30 U/L (0-31); Albumin Level 4.3 g/dL (3.5-5.0); Alkaline Phosphatase 65 U/L (39-117); Anion Gap 12 (12-20); Aspartate Amino Transferase 25 U/L (5-31); Bilirubin Total 0.5 mg/dL (0.0-1.0); Blood Urea Nitrogen 14 mg/dL (9-16); Calcium 10.1 mg/dL (8.4-10.2); Carbon Dioxide 28 mmol/L (22-29); Chloride 106 mmol/L (96-108); Cholesterol 197 mg/dL (<200); Estimated Glomerular Filt Rate > 60; Glucose Fasting 111 mg/dL (60-99); HDL Cholesterol 47 mg/dL (>40); LDL Cholesterol Calculated 109 mg/dL (<100); Sodium 142 mmol/L (135-145); Total Protein 7.6 g/dL (6.5-8.0); Triglycerides 209 mg/dL (<150)
== END 2023-10-05 11:06 | disposition home or self-care (01) ==
LOC: HO.LAB 11:05
PROVIDERS: PCP Internal Medicine; Referring Provider Internal Medicine; Visit Provider Nurse Practitioner Family
DX: I10 Essential (primary) hypertension (principal)
CPT/HCPCS: 36415; 80053; 80061; 85027

== ENCOUNTER 2023-11-14 17:19 | Outpatient (REF) | payer MEDICARE, OTHER, SELFPAY ==
--- NOTE | ~2023-11-14 | MR_ITS ---
EXAMINATION: MR BRAIN WITHOUT CONTRAST CLINICAL INFORMATION: Demyelination COMPARISON: None available TECHNIQUE: MRI of the brain was obtained using routine sequences without contrast. FINDINGS: There is no reduced diffusion to suggest acute infarct. Susceptibility weighted sequence is within normal limits. No mass effect, extra-axial collection, midline shift, or other herniation. The ventricles and sulci are normal in size and configuration for the patient's age. Chronic lacunar infarction in the right basal ganglia. Periventricular, subcortical, and pontine T2/FLAIR hyperintense foci are nonspecific. Intracranial flow voids are preserved. The coastal thickening in the ethmoid air cells. Trace left mastoid fluid. No expansile or destructive osseous lesion. Degenerative changes of the temporomandibular joints. Degenerative changes of the partially visualized upper cervical spine with incomplete visualization of probable C4-C5 vertebral body fusion. MR/MR head/brain wo con IMPRESSION: Periventricular, subcortical, and pontine T2/FLAIR hyperintense foci are nonspecific but favored to represent sequela of chronic microvascular ischemic change. Small chronic lacunar infarction in the right basal ganglia. No restricted diffusion to suggest acute infarction.
== END 2023-11-14 17:20 | disposition home or self-care (01) ==
LOC: HO.MRI 17:19
PROVIDERS: PCP Internal Medicine; Visit Provider Internal Medicine
DX: G37.9 Demyelinating disease of central nervous system, unspecified (principal)
CPT/HCPCS: 70551

== ENCOUNTER 2024-02-05 14:33 | Outpatient (AMB) | payer MEDICARE, OTHER, SELFPAY ==
--- NOTE | 2024-02-05 14:52 | MHC.OFFVIS ---
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 She reports having spinal stenosis and sciatica. She is uncertain if this is related. 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: No Allergies No Known Allergies Allergy (Verified 02/05/24 14:52) Medication List - Last Reconciled 02/05/24 by Roshni Hernandez MD acetaminophen (Tylenol Extra Strength) 1,000 mg PO Q6H PRN atorvastatin 10 mg PO DAILY cholecalciferol (vitamin D3) 25 mcg PO DAILY duloxetine 20 mg PO BID esomeprazole magnesium (Nexium) 40 mg PO DAILY fluticasone propionate 50 mcg/actuation (Flonase Allergy Relief) 1 spray intranasal DAILY lisinopril 20 mg PO DAILY magnesium gluconate (Mag-G) 54 mg PO DAILY mecobalamin (vitamin B12) 1,000 mcg PO DAILY [id number]-[id number]-[id number] 1 tab PO DAILY omega-3 fatty acids 1,250 mg PO DAILY HPI Comments Details: 73y/o Right handed female comes for evaluation of paresthesias in her legs and hands . she has h/o adeel carpal tunnel surgeries , low back issues ( left sciatica) . she reports numbness and tingling mostly in her feet and legs especially when she is lying down in bed or resting that started about 2 years ago .she has trouble initiating sleep- has trouble getting comfortable , creepy crawly sensation, leg cramps .These symptoms are worse at rest , in the evenings and better with movement. she denies snoring , has leg cramps that wake her up in the middle of the night and can be very painful.she has to walk or move. she was started on cymbalta 2 months ago by her new PCP and she feels mild improvement. [facility] Medical History (Updated 02/05/24 @ 15:40 by Roshni Hernandez MD) Fatigue Snoring Nocturnal leg cramps Restless legs syndrome (RLS) Overweight (BMI 25.0-29.9) Hyperlipidemia Fibromyalgia Hypertension Surgical History History of esophagogastroduodenoscopy (EGD) History of colonoscopy Hx of tonsillectomy History of cholecystectomy H/O neck surgery Family History Mother No problems noted. Father Alzheimer disease Hx of CABG Other Mental health disorder Social History Housing: Apartment Alcohol intake: current Alcohol intake frequency: holidays/special occasions only Patient Tobacco Use Status: Never used Tobacco e-Cigarette/Vaping Use: Never Used Second Hand Smoke Exposure: No service: No Current occupational status: retired Cognitive needs: No Hearing needs: No Vision needs: No Physical Exam Vital Signs: Last Vital Signs Pulse 81 02/05/24 14:53 Resp 17 02/05/24 14:53 BP 142/80 H 02/05/24 14:53 Pulse Ox 97 02/05/24 14:53 Oxygen Delivery Method Room Air 02/05/24 14:53 BMI result Body Mass Index 28.0 Const General: cooperative, healthy appearing, comfortable and no acute distress Nutritional Appearance: average body habitus Orientation/consciousness: patient oriented x3 Eyes Pupils: Equal, round and reactive pupils present Neuro Other: Decreased facial expression and blink - patient had botox for wrinkles in her forehead and lateral canthus Adeel tight TMJ Tight neck muscles General: patient oriented x3, tone normal and moves all extremities Cranial nerves: Yes Facial sensation intact/muscles of mastication intact, Yes Equal, round and reactive pupils present, Yes Bilaterally intact EOM present, Yes Nystagmus not present, Yes Normal facial strength present, Yes Midline tongue present, Yes Symmetric palate elevation present and Yes Ability to bilaterally elevate shoulders present Cognition (Neuro): normal cognition Gait exam (Neuro): Antalgic gait present Motor exam (neuro): 5/5 motor strength present throughout and Normal motor muscle tone present throughout Deep tendon reflexes (DTR's): Right triceps reflex intensity grade: 2+, Left triceps reflex intensity grade: 2+, Rt Biceps (C5, C6): 2+, Left biceps reflex intensity grade: 2+, Right brachioradialis reflex intensity grade: 2+, Left brachioradialis reflex intensity grade: 2+, Right patellar reflex intensity grade: 2+ and Left patellar reflex intensity grade: 2+ Coordination: [id number] test normal Results Reviewed Results Reviewed: MRI [facility] - 07/09 Periventricular, subcortical, and pontine T2/FLAIR hyperintense foci are nonspecific but favored to represent sequela of chronic microvascular ischemic change. Small chronic lacunar infarction in the right basal ganglia. No restricted diffusion to suggest acute infarction. Assessment & Plan Assessment & Plan (1) Restless legs syndrome (RLS): Code(s): G25.81 - Restless legs syndrome Category: Medical (2) Nocturnal leg cramps: Code(s): G47.62 - Sleep related leg cramps Category: Medical (3) Snoring: Code(s): R06.83 - Snoring Category: Medical (4) Fatigue: Code(s): R53.83 - Other fatigue Category: Medical Plan Home sleep test to r/o sleep apnea Reviewed labs from Sep 2023 - normal CBC CMP B12 Vit D I will trial her on ropinirole 0.25 mg 1- 4tabs qhs She will upload her recent labs will consider checking ferritin levels suggested PT for her sciatica- she is seeing [facility] Orders: Orders RT home sleep study Today R06.83 - Snoring, R53.83 - Other fatigue Medications: New ropinirole 1-4 tabs orally bedtime; administer 1-3 hours before bedtime 120 tabs 6RF Coding Level of Care Code New Pt Level 4 (69537) Diagnoses Restless legs syndrome (RLS) G25.81 Nocturnal leg cramps G47.62 Snoring R06.83 Fatigue R53.83
[2024-02-05 14:53] VITALS: BP 142/80; PULSE 81; RESP 17; O2SAT 97; BMI 28.0
== END 2024-02-05 15:46 | disposition home or self-care (01) ==
PROVIDERS: PCP Internal Medicine; Visit Provider Psychiatry & Neurology Neurology
DX: G25.81 Restless legs syndrome (principal); G47.62 Sleep related leg cramps; R06.83 Snoring; R53.83 Other fatigue
CPT/HCPCS: 99204

== ENCOUNTER → 2024-02-05 14:33 | Outpatient (BNVA) | payer MEDICARE, OTHER, SELFPAY | PROVIDERS: PCP Internal Medicine; Visit Provider Psychiatry & Neurology Neurology | DX: G25.81 Restless legs syndrome (principal); G47.62 Sleep related leg cramps; R06.83 Snoring; R53.83 Other fatigue | CPT/HCPCS: 99202 ==